=== PATIENT | male | born 1945 | race Two or more races ===

== ENCOUNTER 2024-08-30 06:58 | Day surgery (SDC) | payer MEDICARE, SELFPAY ==
--- NOTE | 2024-08-30 08:03 | ITS.CL.IMPLP ---
[employer] - Implant Loop
Implant Loop
Procedure Report:
ILR implant
Date of Procedure: August 30, 2024
Patient : [id number]
Procedure: ILR implant
Indication: A-fib monitoring
Implant: Medtronic ILR: Medtronic; Model# [id number] ; Serial# [id number]
Technique: The patient was prepped and draped in the usual fashion. Preoperative local sedation was given. A subcutaneous pocket was created with blunt dissection. Hemostasis was excellent. The device was placed in the pocket and the device. The
skin was closed with steri-strips. The estimated blood loss was minimal. There were no complications.
Final Programming: FVT 231 30/40 beats
VT 176 16 beats
Asystole 3 sec
Gonzalo 30 bpm for 4 beats
AF On AF only.
Conclusion: Uncomplicated insertable loop implant.
Recommendation: Routine Reveal care.
cc: Dr. KRISTIN Saldivar
== END 2024-08-30 08:29 | disposition home or self-care (01) ==
LOC: CATH 06:58
PROVIDERS: ATTENDING PHYSICIAN Internal Medicine Cardiovascular Disease; FAMILY PHYSICIAN Internal Medicine; OTHER PHYSICIAN Internal Medicine Interventional Cardiology
DX: Z09 Encounter for follow-up examination after completed treatment for conditions other than malignant neoplasm (principal); E11.9 Type 2 diabetes mellitus without complications; I47.10 Supraventricular tachycardia, unspecified
CPT/HCPCS: 33285; C1764